=== PATIENT | male | born 1985 | race Caucasian/White ===

== ENCOUNTER 2016-08-21 08:44 | Emergency (ER) | payer OTHER ==
[~2016-08-21 08:44] MED LIST: AMOXICILLIN500 M2 PO; AMOXICILLIN875 M1 PO; BACTRIM DS 8001 TAB PO; BACTRIM DS TAB1 EACH PO; IBUPROFEN800 M1 PO; KEFLEX500 MG PO; TOPICORT60 G1 TOP
[2016-08-21 08:53] VITALS: BP 116/78
[2016-08-21] MEDS ORDERED: VICODIN 5-3001 EACH PO ×2 (09:17→10:11)
[2016-08-21] MEDS ORDERED: IBUPROFEN800 M1 PO ×2 (09:17→10:11)
[2016-08-21] MEDS ORDERED: POLYTRIM EYE DR10 ML OPH ×2 (09:17→10:11)
--- NOTE | 2016-08-21 09:18 | ED EYE COMPLAINT ---
History of Present Illness General Chief Complaint: Eye Problems Stated Complaint: EYE PAIN Source: patient Exam Limitations: no limitations Vital Signs & Intake/Output Vital Signs & Intake/Output Vital Signs Date Time Temp Pulse Resp B/P Pulse O2 O2 Flow FiO2 Ox Delivery Rate 08/21 0853 69 20 116/78 97 Room Air Allergies Coded Allergies: NO KNOWN ALLERGIES (02/27/16) Triage Note: PER PT FEW MONTHS AGO HIT WITH FINGER IN RT EYE, YESTERDAY STARTED WITH UNBEARABLE PAIN AGAIN Triage Nurses Notes Reviewed? yes HPI: Patient is a 30-year-old male presents complaining of pain and redness to his right eye. 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 Pain is currently severe, worsens with light. Associated blurred vision. Patient normally wears glasses, does not have his glasses with him. No contact use. Patient reports he was poked in his right eye approximately 6 months ago had pain at that time but symptoms resolved. Patient reports he has otherwise been healthy. (ALESSANDRO MARIN,) Reconcile Medications Hydrocodone/Acetaminophen (Vicodin 5-300 MG Tablet) 5 MG-300 MG TABLET 1 TAB PO Q6 PRN SEVERE PAIN Hydrocodone/Acetaminophen (Vicodin 5-300 MG Tablet) 5 MG-300 MG TABLET 1 TAB PO Q6 PRN pain Ibuprofen 800 MG TABLET 1 TAB PO Q8H PRN pain Ibuprofen 800 MG TABLET 1 TAB PO Q8 PRN PAIN Polytrim (Polytrim Eye Drops) 10,000 UNIT-1 MG/ML DROPS 1 GTT OPH 4 TIMES/DAY corneal abrasion prophylaxis use for 7 days Polytrim (Polytrim Eye Drops) 10,000 UNIT-1 MG/ML DROPS 1 GTT OPH 4 TIMES/DAY corneal abrasion USE FOR 7 DAYS (SARI COE,LOBO Mauricio) Past History Travel History Traveled to [place] past 21 day No Medical History Any Pertinent Medical History? 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 No (MICHAEL JIMENES) Review of Systems Review of Systems Constitutional: Denies: chills, fever. Eyes: Reports: see HPI. Ear: Reports: no symptoms. Nose: Reports: no symptoms. Cardiovascular: Reports: no symptoms, see HPI, chest pain, edema, orthopena, palpitations, peripheral edema, syncope. GI: Reports: no symptoms. Skin: Reports: no symptoms. Neurological/Psychological: Reports: no symptoms. Hematologic/Endocrine: Reports: no symptoms. Immunologic/Allergic: Reports: no symptoms. (MICHAEL JIMENES) Physical Exam General Appearance: well developed/nourished, alert, awake General Inspection: normal inspection Eyelid: normal inspection Conjunctiva/Sclera: normal inspection Cornea: normal inspection EOM: intact Pupil: normal accommodation General Inspection: 6 mm round area of foreseen uptake overriding the pupil and iris. Eyelid: normal inspection, everted for exam, no foreign body present under eyelid visible Conjunctiva/Sclera: injected Cornea: examined w/fluorescein, 6 mm round abrasion versus ulceration over the pupil and iris. no foreign body present EOM: intact Pupil: normal accommodation, normal pupil, PERRL Physical Exam Head: atraumatic, normal appearance Nose: normal inspection Mouth/Throat: normal mouth inspection Neck: normal inspection, supple, full range of motion Cardiovascular/Respiratory: no respiratory distress Neurologic/Psych: no motor/sensory deficits, awake, alert, oriented x 3, normal gait, normal mood/affect Skin: intact, normal color, warm/dry (MICHAEL JIMENES) Progress Differential Diagnosis: corneal abrasion, corneal foreign body, corneal ulceration Plan of Care: See nursing documentation for visual acuity exam(patient did not have his glasses with him). Patient instructed to follow up with his eye doctor tomorrow for recheck and further evaluation. (IMCHAEL JIMENES) Departure Departure Time of Disposition: 911 Disposition: HOME OR SELF CARE Condition: Stable Clinical Impression Primary Impression: Corneal abrasion Qualifiers: Encounter type: initial encounter Laterality: right Qualified Code: S05.01XA - Injury of conjunctiva and corneal abrasion without foreign body, right eye, initial encounter Referrals: JOSÉ MANUEL CAMARILLO MD (PCP/Family) Additional Instructions: Follow up with your eye doctor tomorrow for further evaluation. Call in the morning for appointment. Return to the ER if worsening of symptoms. Departure Forms: Customer Survey General Discharge Information (MICHAEL JIMENES) Departure Prescriptions: Current Visit Scripts Polytrim (Polytrim Eye Drops) 1 GTT OPH 4 TIMES/DAY #1 BOT use for 7 days Ibuprofen 1 TAB PO Q8H PRN pain #30 TAB Hydrocodone/Acetaminophen (Vicodin 5-300 MG Tablet) 1 TAB PO Q6 PRN SEVERE PAIN #10 TAB Polytrim (Polytrim Eye Drops) 1 GTT OPH 4 TIMES/DAY #1 BOT USE FOR 7 DAYS Ibuprofen 1 TAB PO Q8 PRN PAIN #20 TAB Hydrocodone/Acetaminophen (Vicodin 5-300 MG Tablet) 1 TAB PO Q6 PRN pain #10 TAB PA/CHEMICAL SALES REPRESENTATIVE Co-Sign Statement Statement: ED Attending supervision documentation- [] I saw and evaluated the patient. I have also reviewed all the pertinent lab results and diagnostic results. I agree with the findings and the plan of care as documented in the PA's/CHEMICAL SALES REPRESENTATIVE's documentation. [X] I have reviewed the ED Record and agree with the PA's/CHEMICAL SALES REPRESENTATIVE's documentation. [] Additions or exceptions (if any) to the PAs/CHEMICAL SALES REPRESENTATIVE's note and plan are summarized below: [] (SARI COE,LOBO Mauricio)
== END 2016-08-21 09:26 ==
LOC: ERH 08:44
DX: S05.01XA Injury of conjunctiva and corneal abrasion without foreign body, right eye, initial encounter (principal); X58.XXXA Exposure to other specified factors, initial encounter; Y93.89 Activity, other specified; Y92.59 Other trade areas as the place of occurrence of the external cause